=== PATIENT | female | born 1975 | race African-American/Black ===

== ENCOUNTER 2016-10-28 18:57 | Emergency (ER) | payer OTHER ==
[2016-10-28] MEDS ORDERED: CYCLOBENZAPRINE HCL 10 MG TABLET PO ONE (19:54)
[2016-10-28] MEDS ORDERED: IBUPROFEN 800 MG TABLET PO ONE (19:54)
[2016-10-28 19:56] VITALS: BP 167/114
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
== END 2016-10-28 22:16 | disposition home or self-care (01) ==
LOC: ER 18:57
DX: M54.5 Low back pain (principal); M54.2 Cervicalgia; V49.50XA Passenger injured in collision with unspecified motor vehicles in traffic accident, initial encounter; I10 Essential (primary) hypertension
CPT/HCPCS: 72040; 72100; 99283

== ENCOUNTER 2017-01-25 00:46 | Emergency (ER) | payer OTHER ==
[2017-01-25] MEDS ORDERED: MORPHINE SULFATE IR 15 MG TABLET PO ONE (01:33)
[2017-01-25] MEDS ORDERED: DIAZEPAM INJ 10 MG/2 ML DISP.SYRIN IV ONE (01:33)
[2017-01-25] MEDS ORDERED: IBUPROFEN 600 MG TABLET PO ONE (01:34)
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
[2017-01-25] MEDS ORDERED: HYDROCODONE/ACETAMINOPHEN 5-325 MG 6 TAB/DSPK PO PRN (02:59)
[2017-01-25] MEDS ORDERED: MORPHINE SULFATE IR 30 MG TABLET PO ONE (05:46)
[2017-01-25 06:44] VITALS: BP 160/93
== END 2017-01-25 06:24 | disposition home or self-care (01) ==
LOC: ER 00:46
DX: S02.32XA Fracture of orbital floor, left side, initial encounter for closed fracture (principal); Y04.2XXA Assault by strike against or bumped into by another person, initial encounter; Y93.89 Activity, other specified; R51 Headache; R11.10 Vomiting, unspecified; I10 Essential (primary) hypertension
CPT/HCPCS: 99284; 96374; 70450; 70486; J3360

== ENCOUNTER 2017-01-28 18:42 | Emergency (ER) | payer SELFPAY ==
[2017-01-28] MEDS ORDERED: ERYTHROMYCIN 0.5% OPH OINTMENT 3.5 GM (ER DISP) OS PRN (19:48)
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
[2017-01-28 20:14] VITALS: BP 152/93
== END 2017-01-28 20:10 | disposition home or self-care (01) ==
LOC: ER 18:42
DX: S00.12XA Contusion of left eyelid and periocular area, initial encounter (principal); Y09 Assault by unspecified means; Y92.009 Unspecified place in unspecified non-institutional (private) residence as the place of occurrence of the external cause; H57.12 Ocular pain, left eye; H53.8 Other visual disturbances; I10 Essential (primary) hypertension; Z87.81 Personal history of (healed) traumatic fracture; Z59.9 Problem related to housing and economic circumstances, unspecified
CPT/HCPCS: 99283

== ENCOUNTER 2018-03-13 17:51 | Emergency (ER) | payer SELFPAY ==
[2018-03-13] MEDS ORDERED: OXYCODONE-ACETAMINOPHEN 5-325 MG TABLET PO ONE (18:30)
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
--- NOTE | 2018-03-13 19:07 | RADIOLOGY REPORT (SQ) ---
EXAM DESCRIPTION: CT FACIAL AREA WITHOUT COMPLETED DATE/TIME: 03/13/2018 6:42 pm REASON FOR STUDY: possible open nasal fracture . Cut on the bridge of the nose and on the left raghav k. COMPARISON: CT facial bones 01/25/2017, 06/19/2016. TECHNIQUE: Noncontrasted images through the facial bones and orbits windowed for bone and soft tissu e. Additional coronal and sagittal reconstructed images reviewed. All images stored on PACS. All CT scanners at this facility use dose modulation, iterative reconstruction, and/or weight based d osing when appropriate to reduce radiation dose to as low as reasonably achievable (ALARA). [facility]: Dose Right [facility]: CareDose [facility]: Dose Right [facility]: Teradose 4D [facility]: [employer] RADIATION DOSE: CT Rad equipment meets quality standard of care and radiation dose reduction techniq ues were employed. CTDIvol: 30.4 mGy. DLP: 541 mGy-cm. mGy. LIMITATIONS: None. FINDINGS: FACIAL BONES: There is a comminuted, displaced fracture at the nasal bone. ORBITS: No acute fracture. There are remote fractures at the medial and inferior cleary of the left o rbit and at the inferior wall of the right orbit with intraorbital fat protruding through the bony de fects. Symmetric intact globes and retroorbital soft tissues. PARANASAL SINUSES: No air-fluid levels. SOFT TISSUES: Soft tissue swelling and hematoma overlying the left maxillary region. INFERIOR BRAIN: Limited view. No acute findings. OTHER: No other significant finding. IMPRESSION: 1. Comminuted, displaced fracture at the nasal bone. 2. Soft tissue swelling and hematoma overlying the left maxillary region. 3. Remote fractures at the bilateral orbits with intraorbital fat protruding through the bony defect s. TECHNICAL DOCUMENTATION: JOB ID: [id number]-64 Quality ID # [id number]: Final reports with documentation of one or more dose reduction techniques (e.g., Au tomated exposure control, adjustment of the mA and/or kV according to patient size, use of iterative reconstruction technique) 2010 [employer]- All Rights Reserved Reading location - IP/workstation name: [email or web address]
[2018-03-13] MEDS ORDERED: CLINDAMYCIN HCL 150 MG CAPSULE PO ONE ×2 (19:33)
[2018-03-13] MEDS ORDERED: DIPH/PERTUSS(ACELL)/TETANUS VAC/PF 0.5 ML SYR (>=10YO) IM ONE (19:36)
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
[2018-03-13] MEDS ORDERED: HYDROCODONE/ACETAMINOPHEN 5-325 MG (6 TAB/ER DISP) PO PRN (21:33)
[2018-03-13 22:05] VITALS: BP 164/78
== END 2018-03-13 22:03 | disposition home or self-care (01) ==
LOC: ER 17:51
DX: S02.2XXB Fracture of nasal bones, initial encounter for open fracture (principal); S02.80XA Fracture of other specified skull and facial bones, unspecified side, initial encounter for closed fracture; Y04.0XXA Assault by unarmed brawl or fight, initial encounter; F17.200 Nicotine dependence, unspecified, uncomplicated
CPT/HCPCS: 70486; 90471; 90715; 99283

== ENCOUNTER 2019-02-03 09:36 | Emergency (ER) | payer BC ==
[2019-02-03] MEDS ORDERED: LIDOCAINE 5% (700 MG) TRANSDERMAL ADH..PATCH TP ONE (10:21)
[2019-02-03] MEDS ORDERED: KETOROLAC TROMETHAMINE 60 MG/2 ML SDV IM ONE (10:21)
--- NOTE | 2019-02-03 10:24 | ER Document Report ---
HPI - HPI Patient complains to provider of: Upper back pain Time Seen by Provider: 02/03/19 10:17 Onset: This morning Onset/Duration: Sudden Quality of pain: Achy Severity: Severe Pain Level: 4 Context: This 43-year-old female presents emergency department with complaints of sudden onset upper right back pain. Reports she woke up around 300 with the pain. Reports she works in the [employer] could have strained it there. Denies fever vomiting diarrhea. Denies past medical history of injury to the back. Denies numbness and tingling. Patient reports it feels better when she tries to stretch the muscle out. She has not taking anything [id number] for the pain. Associated Symptoms: None Exacerbated by: Denies Relieved by: Denies Similar symptoms previously: No Recently seen / treated by doctor: No - REPRODUCTIVE Reproductive: DENIES: : Past Medical History - General Information source: Patient - Social History Smoking Status: Unknown if Ever Smoked Cigarette use (# per day): No Frequency of alcohol use: None Drug Abuse: None Occupation: [employer] Lives with: Family Family History: Reviewed & Not Pertinent Patient has suicidal ideation: No Patient has homicidal ideation: No - Past Medical History Cardiac Medical History: Reports: Hx Hypertension Renal/ Medical History: Denies: Hx Peritoneal Dialysis Musculoskeletal Medical History: Reports Hx Musculoskeletal Trauma - Left orbital fractures Traumatic Medical History: Reports: Hx Fractures - Orbital left - Immunizations Hx Diphtheria, Pertussis, Tetanus Vaccination: Yes Vertical Provider Document - CONSTITUTIONAL Agree With Documented VS: Yes Exam Limitations: No Limitations General Appearance: WD/WN, No Apparent Distress - INFECTION CONTROL TRAVEL OUTSIDE OF THE [place] IN LAST 30 DAYS: No - HEENT HEENT: Atraumatic, Normocephalic - NECK Neck: Normal Inspection, Supple. negative: Lymphadenopathy-Right - RESPIRATORY Respiratory: Breath Sounds Normal, No Respiratory Distress - CARDIOVASCULAR Cardiovascular: Regular Rate, Regular Rhythm - GI/ABDOMEN Gastrointestinal: Abdomen Soft, Abdomen Non-Tender - BACK Back: Normal Inspection - No obvious deformity no erythema no swelling no warmth good distal movement status sensation. Patient tender to palpate trapezius area. Reports massage feel better. - MUSCULOSKELETAL/EXTREMETIES Musculoskeletal/Extremeties: MAEW, FROM, Non-Tender - NEURO Level of Consciousness: Awake, Alert, Appropriate Motor/Sensory: No Motor Deficit - DERM Integumentary: Warm, Dry, No Rash Adult Front & Back Diagram: 1 - reports area ttp Course - Re-evaluation Re-evalutation: 02/03/19 10:27 This 43-year-old female with complaints of right upper back pain that started at 300 this morning. Reports it woke her up. She has not taken anything for the pain. Denies trauma. No weakness no numbness and tingling good plasterer spot. Patient was treated for Toradol for the pain prescribe Motrin and given a Lidoderm patch. She was instructed follow-up with primary care provider stretch and massage. Dictation of this chart was performed using voice recognition software; therefore, there may be some unintended grammatical errors. 02/03/19 Patient reports she felt better after the Toradol and Lidoderm patch. - Vital Signs Vital signs: Temp Pulse Resp BP Pulse Ox 98.5 F 81 18 163/98 H 100 02/03/19 09:40 02/03/19 09:40 02/03/19 09:40 02/03/19 09:40 02/03/19 09:40 Discharge - Discharge Clinical Impression: Upper back pain on right side Trapezius strain Qualifiers: Encounter type: initial encounter Laterality: right Qualified Code(s): S46.811A - Strain of other muscles, fascia and tendons at shoulder and upper arm level, right arm, initial encounter Condition: Stable Disposition: HOME, SELF-CARE Instructions: Family Physicians / Practices, Use of [id number]-[id number] Ibuprofen ([facility]), Muscle Relaxers ([facility]), Muscle Strain ([facility]), Toradol Injection ([facility]) Additional Instructions: *You have been evaluated for upper back pain, trapezius strain *Take medication as prescribed *Rest/Ice/ massage *Follow up with a primary care provider within one week for recheck *Return to ED for worsening condition, changes, needs Prescriptions: Cyclobenzaprine HCl [Flexeril 5 mg Tablet] 5 mg PO TID #15 tablet Forms: Return to Work Referrals: LOCALMD,NO [NO LOCAL MD] - Follow up as needed
[2019-02-03 10:50] VITALS: BP 152/105
== END 2019-02-03 10:55 | disposition home or self-care (01) ==
LOC: ER 09:36
DX: S46.811A Strain of other muscles, fascia and tendons at shoulder and upper arm level, right arm, initial encounter (principal); M54.6 Pain in thoracic spine; I10 Essential (primary) hypertension; X58.XXXA Exposure to other specified factors, initial encounter
CPT/HCPCS: 99283; 96372; J1885

== ENCOUNTER 2019-03-12 19:13 | Emergency (ER) | payer BC ==
--- NOTE | 2019-03-12 20:19 | ER Document Report ---
HPI - HPI Time Seen by Provider: 03/12/19 20:08 Pain Level: 3 Notes: Patient is a 43-year-old female with no significant past medical history presents complaining of a rash to her forearms, arms, and one spot on her mid left back that is been present for the bout 1.5 weeks. Patient states that the rash is pruritic. It has not been spreading to her trunk any more than it has. She is not aware of any new exposure to chemicals, detergents, soaps, plants. No known insect bites. Patient states that she is not in an area where she could be bit by a tick. Patient states that she did start taking Flexeril just prior to the start of symptoms, but stopped the medicine about 3 to 4 days thereafter. She has tried cortisone cream with little relief. She has no other concerns or complaints. She otherwise feels well. She does not take any medicines p.o. and is aware that her blood pressure is elevated. Denies any headache, fever, neck pain, URI, sore throat, chest pain, palpitations, syncope, cough, shortness of breath, wheeze, dyspnea, abdominal pain, naus ea/vomiting/diarrhea, urinary retention, dysuria, hematuria, loss of control of bowel or bladder, numbness/tingling, saddle anesthesia, muscle paralysis/weakness. - ROS Systems Reviewed and Negative: Yes All other systems reviewed and negative - REPRODUCTIVE Reproductive: DENIES: : Past Medical History - Social History Smoking Status: Unknown if Ever Smoked Family History: Reviewed & Not Pertinent - Past Medical History Cardiac Medical History: Reports: Hx Hypertension Renal/ Medical History: Denies: Hx Peritoneal Dialysis Musculoskeletal Medical History: Reports Hx Musculoskeletal Trauma - Left orbital fractures Traumatic Medical History: Reports: Hx Fractures - Orbital left - Immunizations Hx Diphtheria, Pertussis, Tetanus Vaccination: Yes Vertical Provider Document - CONSTITUTIONAL Agree With Documented VS: Yes Notes: PHYSICAL EXAMINATION: GENERAL: Well-appearing, well-nourished and in no acute distress. A&Ox4. Answers questions appropriately. HEAD: Atraumatic, normocephalic. EYES: Pupils equal round and reactive to light, extraocular movements intact, sclera anicteric, conjunctiva are normal. ENT: Nares patent and without discharge. oropharynx clear without exudates. No tonsilar hypertrophy or erythema. Moist mucous membranes. No sinus tenderness. No swelling of the lip/tongue/throat. No evidence of angioedema, hoarseness, or excessive drooling. NECK: Normal range of motion, supple without lymphadenopathy LUNGS: Breath sounds clear to auscultation bilaterally and equal. No wheezes rales or rhonchi. HEART: Regular rate and rhythm without murmurs, rubs, gallops. ABDOMEN: Soft, nontender, nondistended abdomen. No guarding, no rebound. Normal bowel sounds present. No CVA tenderness bilaterally. Musculoskeletal: FROM to passive/active. Strength 5+/5. Extremities: No cyanosis, clubbing, or edema b/l. Peripheral pulses 2+. Capillary refill less than 3 seconds. NEUROLOGICAL: Cranial nerves grossly intact. Normal speech, normal gait. Normal sensory, motor exams PSYCH: Normal mood, normal affect. SKIN: nonspecific mildly erythemic wheal appearing rash without central clearing noted to the b/l UE's. There is a small spot to the left mid back as well. These areas are non-tender and without induration/fluctuance. No involvement of the oral mucosa, palms, soles of feet. No excoriations or sloughing noted. No necrosis. - INFECTION CONTROL TRAVEL OUTSIDE OF THE [place] IN LAST 30 DAYS: No Course - Re-evaluation Re-evalutation: 03/12/19 20:19 Patient is an afebrile, well-hydrated, 43-year-old female who presents with a nonspecific skin rash, possible erythema multiforme. Vitals are acceptable without significant tachycardia, tachypnea, or hypoxia. PE is otherwise unremarkable. Patient is nontoxic-appearing and is able to tolerate p.o. without difficulty. No work-up warranted at this time. Low suspicion for any necrotizing fasciitis, SJS, SSS, drug reaction, sepsis, meningitis, syphilis, Lyme disease, [place] spotted fever, or other systemic emergent condition at this time. Patient aware that condition can change from initial presentation and she needs to monitor symptoms closely and seek medical attention with any acute changes. Recheck with your PCM in 2 to 3 days. Schedule consult with dermatology. Return to the ED with any other worsening/concerning symptoms as reviewed. Patient is in agreement. - Vital Signs Vital signs: Temp Pulse Resp BP Pulse Ox 98.8 F 71 16 163/102 H 97 03/12/19 19:29 03/12/19 19:29 03/12/19 19:29 03/12/19 19:31 03/12/19 19:29 Discharge - Discharge Clinical Impression: Rash and nonspecific skin eruption Condition: Stable Disposition: HOME, SELF-CARE Additional Instructions: Keep the skin clean Wash with soap and water Tylenol/ibuprofen if needed Triple antibiotic ointment daily Take medication as directed Monitor your blood pressure closely as it puts you at higher risk for cardiovascular disease(s) Monitor for any worsening symptoms Recheck with your PCM in 3-5 days Schedule consult with dermatology for further evaluation and management Return to the ED with any worsening symptoms and/or development of fever, headache, chest pain, palpitations, syncope, shortness of breath, trouble breathing, abdominal pain, n/v/d, abscess, purulent discharge, red streaks, worsening swelling, or other worsening symptoms that are concerning to you. Prescriptions: Prednisone [Deltasone 10 mg Tablet] 10 mg PO DAILY #18 tablet Forms: Elevated Blood Pressure Referrals: AMIRA WHITE DO [ACTIVE STAFF] - Follow up in 3-5 days
[2019-03-12 20:30] VITALS: BP 150/98
== END 2019-03-12 20:32 | disposition home or self-care (01) ==
LOC: ER 19:13
DX: R21 Rash and other nonspecific skin eruption (principal); L29.8 Other pruritus; I10 Essential (primary) hypertension
CPT/HCPCS: 99282

== ENCOUNTER 2019-06-14 07:37 | Emergency (ER) | payer BC ==
[2019-06-14 09:53] LABS: ABSOLUTE EOSINOPHILS # (AUTO) 0.2 10^3/uL (0.0-0.6); ABSOLUTE LYMPHOCYTES (AUTO) 1.3 10^3/uL (0.5-4.7); ABSOLUTE MONOCYTES (AUTO) 0.4 10^3/uL (0.1-1.4); ABSOLUTE NEUT (AUTO) 5.8 10^3/uL (1.7-8.2); BASOPHILS % (AUTO) 0.4 % (0-2); HEMATOCRIT 37.8 % (36.0-47.0); HEMOGLOBIN 12.9 g/dL (12.0-15.5); LYMPHOCYTES % (AUTO) 16.8 % (13-45); MEAN CORPUSCULAR HEMOGLOBIN 29.9 pg (27.0-33.4); MEAN CORPUSCULAR HGB CONC 34.1 g/dL (32.0-36.0); MEAN CORPUSCULAR VOLUME 88 fl (80-97); MONOCYTES % (AUTO) 5.7 % (3-13); PLATELET COUNT 345 10^3/uL (150-450); RED BLOOD COUNT 4.31 10^6/uL (3.72-5.28); RED CELL DISTRIBUTION WIDTH 16.3 % (11.5-14.0); SEGMENTED NEUTROPHILS % (AUTO) 75.1 % (42-78); TOTAL CELLS COUNTED % (AUTO) 100 %; WHITE BLOOD COUNT 7.7 10^3/uL (4.0-10.5)
[2019-06-14 09:55] LABS: APPEARANCE,URINE SLIGHTLY-CLOUDY; BILIRUBIN,URINE NEGATIVE (NEGATIVE); COLOR,URINE YELLOW; GLUCOSE, URINE NEGATIVE (NEGATIVE); KETONES,URINE NEGATIVE (NEGATIVE); LEUKOCYTE ESTERASE,URINE SMALL (NEGATIVE); NITRITE,URINE NEGATIVE (NEGATIVE); PROTEIN,URINE NEGATIVE (NEGATIVE); URINE SPECIFIC GRAVITY 1.019
[2019-06-14 10:10] LABS: ALBUMIN 4.4 g/dL (3.5-5.0); ALKALINE PHOSPHATASE 82 U/L (38-126); ANION GAP 12 (5-19); ASPARTATE AMINO TRANSFERASE 25 U/L (14-36); BILIRUBIN,DIRECT 0.2 mg/dL (0.0-0.4); BILIRUBIN,TOTAL 0.6 mg/dL (0.2-1.3); BLOOD UREA NITROGEN 14 mg/dL (7-20); CALCIUM 9.7 mg/dL (8.4-10.2); CARBON DIOXIDE 22 mmol/L (22-30); CHLORIDE 106 mmol/L (98-107); GLUCOSE 93 mg/dL (75-110); TOTAL PROTEIN 7.8 g/dL (6.3-8.2)
--- NOTE | 2019-06-14 10:10 | ER Document Report ---
ED GI/ - General Chief Complaint: Abdominal Pain Stated Complaint: ABDOMINAL PAIN Time Seen by Provider: 06/14/19 09:38 Mode of Arrival: Ambulatory Notes: Ms. Sinha is a 43 yo f w/ no significant past medical history presenting to the ED for abdominal pain. Patient states the pain has been ongoing for the past 2 days and is primarily located duncan-umbilicus region. Patient endorses nausea and 2 episodes of vomiting yesterday. Patient states she has had significantly decreased appetite and feeling more tired/sleepy. She endorses chills without any fevers. She endorses increased urinary frequency without any dysuria. Bowel movements have been normal without any diarrhea or significant constipation. Patient denies any known ill contacts. She denies any previous abdominal surgical history. She has had 3 children, all of whom were born vaginally without any complications. TRAVEL OUTSIDE OF THE [place] IN LAST 30 DAYS: No - Related Data Allergies/Adverse Reactions: Penicillins Adverse Reaction (Verified 06/14/19 08:02) Hives Past Medical History - Social History Smoking Status: Current Every Day Smoker Chew tobacco use (# tins/day): No Frequency of alcohol use: Occasional Drug Abuse: Marijuana Family History: Reviewed & Not Pertinent Patient has suicidal ideation: No Patient has homicidal ideation: No - Past Medical History Cardiac Medical History: Reports: Hx Hypertension Renal/ Medical History: Denies: Hx Peritoneal Dialysis Musculoskeletal Medical History: Reports Hx Musculoskeletal Trauma - Left orbital fractures Traumatic Medical History: Reports: Hx Fractures - Orbital left - Immunizations Hx Diphtheria, Pertussis, Tetanus Vaccination: Yes Review of Systems - Review of Systems Constitutional: See HPI EENT: No symptoms reported Cardiovascular: No symptoms reported Respiratory: No symptoms reported Gastrointestinal: See HPI Genitourinary: No symptoms reported Female Genitourinary: No symptoms reported Musculoskeletal: No symptoms reported Skin: No symptoms reported Hematologic/Lymphatic: No symptoms reported Neurological/Psychological: No symptoms reported Physical Exam - Vital signs Vitals: Temp Pulse Resp BP Pulse Ox 98.7 F 86 16 142/89 H 100 06/14/19 07:41 06/14/19 07:41 06/14/19 07:41 06/14/19 07:41 06/14/19 07:41 Interpretation: Hypertensive - General General appearance: Appears well, Alert - HEENT Head: Normocephalic, Atraumatic Eyes: Normal Pupils: PERRL - Respiratory Respiratory status: No respiratory distress Chest status: Nontender Breath sounds: Normal Chest palpation: Normal - Cardiovascular Rhythm: Regular Heart sounds: Normal auscultation Murmur: No - Abdominal Inspection: Normal Distension: No distension Bowel sounds: Normal Tenderness: Tender - Moderate tenderness to palpation in the periumbilical region. Mild tenderness palpation in the right lower quadrant.. No: McBurney's point, Guarding, Rebound Organomegaly: No organomegaly - Back Back: Normal, Nontender - Extremities General upper extremity: Normal inspection, Nontender, Normal color, Normal ROM, Normal temperature General lower extremity: Normal inspection, Nontender, Normal color, Normal ROM, Normal temperature, Normal weight bearing. No: Mikki's sign - Neurological Neuro grossly intact: Yes Cognition: Normal Orientation: AAOx4 Griselda Coma Scale Eye Opening: Spontaneous [place] Coma Scale Verbal: Oriented [place] Coma Scale Motor: Obeys Commands [place] Coma Scale Total: 15 Speech: Normal Motor strength normal: LUE, RUE, LLE, RLE Sensory: Normal - Psychological Associated symptoms: Normal affect, Normal mood - Skin Skin Temperature: Warm Skin Moisture: Dry Skin Color: Normal Course - Re-evaluation Re-evalutation: Patient is generally well-appearing and nontoxic. Initial vitals notable for mildly elevated blood pressure. Differential diagnosis includes GERD, appendicitis, UTI, cholecystitis (less likely) 06/14/19 10:09 Labs and UA ordered from triage. CT will be ordered to assess for possible appendicitis as the patient has not had any surgical intervention on her abdomen. Will reassess after labs return. Patient refused any nausea medicine or pain medicine at this point in time. 06/14/19 11:52 CBC and CMP otherwise unremarkable. UA shows moderate amount of blood with small amount of leukocyte esterase however there is only 25 WBCs and there is less than 1 squamous cell. Likely UTI. CT performed but has not been read yet. 06/14/19 11:55 CT negative for any acute abdominal process. Likely the patient has UTI. Will administer ceftriaxone IV and discharged with Keflex. Patient given return precautions and instructed to follow-up with her primary care doctor as needed. - Vital Signs Vital signs: Temp Pulse Resp BP Pulse Ox 98.7 F 86 16 142/89 H 100 06/14/19 08:02 06/14/19 07:41 06/14/19 08:02 06/14/19 07:41 06/14/19 08:02 - Laboratory Result Diagrams: 06/14/19 09:35 06/14/19 09:35 Laboratory results interpreted by me: 06/14/19 06/14/19 09:28 09:35 RDW 16.3 H Urine Blood MODERATE H Urine Urobilinogen 4.0 H Ur Leukocyte Esterase SMALL H Urine Ascorbic Acid 20 H Discharge - Discharge Clinical Impression: UTI (urinary tract infection) Qualifiers: Urinary tract infection type: site unspecified Hematuria presence: with hematuria Qualified Code(s): N39.0 - Urinary tract infection, site not specified; R31.9 - Hematuria, unspecified Abdominal pain Qualifiers: Abdominal location: lower abdomen, unspecified Qualified Code(s): R10.30 - Lower abdominal pain, unspecified Condition: Good Disposition: HOME, SELF-CARE Instructions: Cephalexin ([facility]), Urinary Tract Infection ([facility]) Additional Instructions: It is important you take the full course of antibiotics as prescribed. Follow- up with your primary care doctor as needed. If you develop worsening pain, are unable to keep down food or drink, return to the ED for further evaluation. Prescriptions: Cephalexin Monohydrate [Keflex 500 mg Capsule] 500 mg PO TID 4 Days #12 capsule
--- NOTE | 2019-06-14 11:53 | RADIOLOGY REPORT (SQ) ---
EXAM DESCRIPTION: CT ABD/PELVIS WITH IV ONLY COMPLETED DATE/TIME: 06/14/2019 11:07 am REASON FOR STUDY: RLQ and periumbilical pain, r/o appendicitis COMPARISON: None. TECHNIQUE: CT scan of the abdomen and pelvis performed using helical scanning technique with dynamic intravenous contrast injection. No oral contrast. Images reviewed with lung, soft tissue, and bone windows. Reconstructed coronal and sagittal MPR images reviewed. Delayed images for evaluation of the urinary system also acquired. All images stored on PACS. All CT scanners at this facility use dose modulation, iterative reconstruction, and/or weight based d osing when appropriate to reduce radiation dose to as low as reasonably achievable (ALARA). [facility]: Dose Right [facility]: CareDose [facility]: Dose Right [facility]: Teradose 4D [facility]: Talentology CONTRAST TYPE AND DOSE: contrast/concentration: Isovue 350.00 mg/ml; Total Contrast Delivered: 79.0 ml; Total Saline Delivered: 68.0 ml RENAL FUNCTION: None required. The patient is less than 50 years old. RADIATION DOSE: CT Rad equipment meets quality standard of care and radiation dose reduction techniq ues were employed. CTDIvol: 5.2 - 6.5 mGy. DLP: 610 mGy-cm.. LIMITATIONS: None. FINDINGS: LOWER CHEST: No significant findings. No nodules or infiltrates. LIVER: Normal size. No masses. No dilated ducts. SPLEEN: Normal size. No focal lesions. PANCREAS: No masses. No significant calcifications. No adjacent inflammation or peripancreatic fluid collections. Pancreatic duct not dilated. GALLBLADDER: No identified stones by CT criteria. No inflammatory changes to suggest cholecystitis. ADRENAL GLANDS: No significant masses or asymmetry. RIGHT KIDNEY AND URETER: No solid masses. No significant calcifications. No hydronephrosis or hyd roureter. LEFT KIDNEY AND URETER: No solid masses. No significant calcifications. No hydronephrosis or hydr oureter. AORTA AND VESSELS: No aneurysm. No dissection. Renal arteries, SMA, celiac without stenosis. RETROPERITONEUM: No retroperitoneal adenopathy, hemorrhage or masses. BOWEL AND PERITONEAL CAVITY: No masses or inflammatory changes. No free fluid or peritoneal masses. APPENDIX: The appendix is normal in appearance. It is retrocecal in position just inferior to the li jessica. PELVIS: No mass. No free fluid. Normal bladder. ABDOMINAL WALL: No masses. No hernias. BONES: No significant or acute findings. OTHER: No other significant finding. IMPRESSION: NO SIGNIFICANT OR ACUTE FINDING IN THE ABDOMEN OR PELVIS ON CT SCAN WITH IV CONTRAST. TECHNICAL DOCUMENTATION: JOB ID: [id number] Quality ID # [id number]: Final reports with documentation of one or more dose reduction techniques (e.g., Au tomated exposure control, adjustment of the mA and/or kV according to patient size, use of iterative reconstruction technique) 2010 [employer]- All Rights Reserved Reading location - IP/workstation name: [email or web address]
[2019-06-14] MEDS ORDERED: CEFTRIAXONE 1 GM/D5W RTU 1 GM/50 ML RTUPB IV ONE (11:54)
[2019-06-14 12:52] VITALS: BP 145/95
== END 2019-06-14 12:49 | disposition home or self-care (01) ==
LOC: ER 07:37
DX: N39.0 Urinary tract infection, site not specified (principal); R31.9 Hematuria, unspecified; R10.30 Lower abdominal pain, unspecified; F17.200 Nicotine dependence, unspecified, uncomplicated; I10 Essential (primary) hypertension; Z88.0 Allergy status to penicillin
CPT/HCPCS: 36415; 83690; 85025; 81025; 80053; 81001; 74177; J0696